=== PATIENT | male | born 1975 | race Caucasian/White ===

== ENCOUNTER 2022-04-09 05:45 | Emergency (ER) | payer MEDICAID | END 2022-04-09 07:16 | disposition home or self-care (01) | LOC: LB.ED 05:45 | DX: G56.31 Lesion of radial nerve, right upper limb (principal); Z88.0 Allergy status to penicillin; Z91.030 Bee allergy status | CPT/HCPCS: 36415; 71045; 80048; 80307; 84484; 85025; 93005; 99282; 99284-25 ==